=== PATIENT | male | born 1965 | race Caucasian/White ===

== ENCOUNTER → 2018-02-05 | Outpatient (REF) | payer BC, OTHER | LOC: M SMT 12:16 | DX: Z30.2 Encounter for sterilization (principal) | CPT/HCPCS: 88302 ==

== ENCOUNTER 2020-11-21 18:22 | Emergency (ER) | payer OTHER, SELFPAY ==
[~2020-11-21] VITALS: Ht 175.3 cm; Wt 102.3 kg
[2020-11-21] MEDS ORDERED: ASPIRIN 81 MG CHEW TABLET PO ONE (18:50)
[2020-11-21 18:59] LABS: BASO % 0.4 % (0.0-1.0); EOS # 0.1 10^3/uL (0.0-0.5); EOS % 2.5 % (0.0-3.0); HEMATOCRIT 47.7 % (42.0-52.0); HEMOGLOBIN 17.3 g/dl (13.5-17.5); LYMPH # 2.5 10^3/uL (1.5-5.0); LYMPH % 46.9 % (24.0-44.0); MEAN CORPUSCULAR HEMOGLOBIN 31.7 pg (27.0-33.0); MEAN CORPUSCULAR HGB CONC 36.3 g/dl (32.0-36.5); MEAN CORPUSCULAR VOLUME 87.4 fl (80.0-96.0); MONO # 0.5 10^3/uL (0.0-0.8); MONO % 9.2 % (2.0-8.0); NEUTROPHILS # 2.1 10^3/uL (1.5-8.5); NEUTROPHILS % 40.8 % (36.0-66.0); PLATELET COUNT, AUTOMATED 156 10^3/uL (150-450); RED BLOOD COUNT 5.46 10^6/uL (4.30-6.10); WHITE BLOOD COUNT 5.2 10^3/uL (4.0-10.0)
[2020-11-21 19:30] LABS: BILIRUBIN,DIRECT 0.1 MG/DL (0.0-0.2); BILIRUBIN,TOTAL 0.4 MG/DL (0.2-1.0); THYROID STIMULATING HORMONE 2.91 uIU/ML (0.358-3.740); TOTAL PROTEIN 7.4 GM/DL (6.4-8.2)
--- NOTE | 2020-11-21 19:54 | REP ---
INDICATION: CHEST PAIN. COMPARISON: None. TECHNIQUE: Portable AP chest with the patient sitting FINDINGS: The lung rock[place] are clear. Cardiac size is normal. The radha, mediastinum and skeletal structures are unremarkable. IMPRESSION: Essentially portable chest <Electronically signed by Steven Hoang > 11/21/20 1950
[2020-11-21 20:30] VITALS: BP 129/88
--- NOTE | 2020-11-21 22:21 | ECGEPIP ---
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
[2020-11-23 14:09] LABS: Lyme Disease IgG/IgM Antibodie <0.91 ISR (0.00-0.90); Lyme Disease IgM Ab Quantitati <0.80 index (0.00-0.79)
== END 2020-11-21 20:45 | disposition home or self-care (01) ==
LOC: M ED 18:22
DX: R07.9 Chest pain, unspecified (principal); K21.9 Gastro-esophageal reflux disease without esophagitis

== ENCOUNTER → 2023-01-18 | Outpatient (REF) | payer SELFPAY, BC | LOC: M LAB REF 16:26 | PROVIDERS: ATTEND Internal Medicine | DX: R53.83 Other fatigue (principal) ==

== ENCOUNTER 2023-10-18 08:07 | Day surgery (SDC) | payer BC ==
[~2023-10-18] VITALS: Ht 175.3 cm; Wt 94.3 kg
[2023-10-18] MEDS: NS 1,000 ML IV ONE (08:25)
[2023-10-18] MEDS ORDERED: LIDOCAINE 2% 100MG/5ML SDV (FOR ANES.) As Ordered ONE (08:28)
[2023-10-18] MEDS ORDERED: propofoL 200 MG/20 ML VIAL As Ordered ONE (08:28)
[2023-10-18] MEDS ORDERED: GLYCOPYRROLATE INJ 0.2 MG/ML 2 ML VIAL As Ordered ONE (10:07)
[2023-10-18 10:28] VITALS: TEMP 97.9
[2023-10-18 10:45] VITALS: BP 117/69; O2SAT 94
== END 2023-10-18 10:57 | disposition home or self-care (01) ==
LOC: M OPP 08:07
PROVIDERS: ATTEND Internal Medicine Gastroenterology
DX: Z12.11 Encounter for screening for malignant neoplasm of colon (principal); Z86.010 Personal history of colon polyps; K63.5 Polyp of colon; K57.30 Diverticulosis of large intestine without perforation or abscess without bleeding; K64.8 Other hemorrhoids